=== PATIENT | female | born 1970 | race Caucasian/White ===

== ENCOUNTER 2019-05-11 07:11 | Outpatient (CLI) | payer BC, OTHER, SELFPAY ==
--- NOTE | ~2019-05-11 | MM_ITS ---
EXAMINATION: MM screening [facility] BI w williams HISTORY: Screening mammogram TECHNIQUE: Craniocaudal and mediolateral oblique 3-D tomosynthesis images were obtained and synthetic 2-D images were generated. CAD analysis was submitted and interpreted. COMPARISON: 02/07/2018, 02/23/2017, 05/24/2015 BREAST PARENCHYMAL COMPOSITION: The breasts are almost entirely fatty. FINDINGS: There is no evidence of suspicious mass, calcification, or architectural distortion to sugg est malignancy in either breast. There has been no suspicious interval change. IMPRESSION: 1. No mammographic evidence of malignancy. 2. Recommend routine screening mammography in one year. BI-RADS Category 1: Negative Reviewed, dictated and finalized at location A.
== END 2019-05-11 07:12 | disposition home or self-care (01) ==
PROVIDERS: PCP Family Medicine; Visit Provider Obstetrics & Gynecology
DX: Z12.31 Encounter for screening mammogram for malignant neoplasm of breast (principal)
CPT/HCPCS: 77063; 77067

== ENCOUNTER 2019-08-04 08:26 | Outpatient (CLI) | payer BC, OTHER, SELFPAY ==
--- NOTE | ~2019-08-04 | XR_ITS ---
EXAMINATION: XR chest 2V DATE: 08/04/2019 09:15 INDICATION: Episcleritis of both eyes. TECHNIQUE: Frontal and lateral views of the chest were obtained. COMPARISON: None. FINDINGS: The chest demonstrates clear lungs without pneumonia, pleural effusion, or pneumothorax. Th e heart size is normal. There are surgical clips in the abdomen. IMPRESSION: 1. No acute cardiopulmonary disease. Reviewed, dictated and finalized at location A.
--- NOTE | ~2019-08-04 | XR_ITS ---
XR sacroiliac joints min 3V DATE: 08/04/2019 09:15 INDICATION: Episcleritis of both eyes TECHNIQUE: AP and bilateral oblique views COMPARISON: None FINDINGS: The sacroiliac joints appear normal. No fracture, dislocation, erosive change or ankylosis. IMPRESSION: Negative Reviewed, dictated and finalized at Location A. Reviewed, dictated and finalized at location A. IMPRESSION: Negative
== END 2019-08-04 08:27 | disposition home or self-care (01) ==
LOC: ANHIMG 08:31
PROVIDERS: Visit Provider Internal Medicine Rheumatology
DX: H15.103 Unspecified episcleritis, bilateral (principal)
CPT/HCPCS: 71046; 72202

== ENCOUNTER 2020-05-13 07:34 | Outpatient (CLI) | payer BC, OTHER, SELFPAY ==
--- NOTE | ~2020-05-13 | MM_ITS ---
EXAMINATION: MM screening [facility] BI w williams HISTORY: Screening TECHNIQUE: Craniocaudal and mediolateral oblique 3-D tomosynthesis images were obtained and synthetic 2-D images were generated. CAD analysis was submitted and interpreted. COMPARISON: Comparison to multiple prior studies sequentially, with oldest reviewed study dated 07/2011. BREAST PARENCHYMAL COMPOSITION: There are scattered areas of fibroglandular density. FINDINGS: There is no evidence of suspicious mass, calcification, or architectural distortion to sugg est malignancy in either breast. There has been no suspicious interval change. IMPRESSION: 1. No mammographic evidence of malignancy. 2. Recommend routine screening mammography in one year. BI-RADS Category 1: Negative Reviewed, dictated and finalized at location A.
== END 2020-05-13 07:35 | disposition home or self-care (01) ==
LOC: ANHIMG 07:36
PROVIDERS: PCP Emergency Medicine; Visit Provider Obstetrics & Gynecology
DX: Z12.31 Encounter for screening mammogram for malignant neoplasm of breast (principal)
CPT/HCPCS: 77063; 77067

== ENCOUNTER → 2021-04-26 07:48 | Outpatient (CLI) | payer OTHER, SELFPAY ==
--- NOTE | ~2021-04-26 | US_ITS ---
EXAMINATION: US pelvic complete w TV EXAM DATE: 04/26/2021 08:37 INDICATION: N92.6 - Irregular menstruation, unspecified. TECHNIQUE: Pelvic transabdominal and transvaginal sonogram was performed. There are multiple graysca le and Doppler images available for interpretation. There is no prior study for comparison. FINDINGS: Uterus measures 9.1 x 3.9 x 4.8 cm, and is morphologically normal. Endometrial stripe january sures 8 mm, within normal limits. There is no free pelvic fluid. Right adnexa: The ovary measures 6.3 x 6.5 x 6.5 cm, with a 5.7 x 5.8 x 5.7 cm anechoic cystic lesion within this ovary.. Ovarian vascular flow confirmed. Left adnexa: The ovary measures 3.8 x 3.2 x 2.1 cm, there is a 1.8 cm anechoic cyst. Ovarian vascular flow confirmed. At 50 years of age, is patient perimenopausal rather than postmenopausal? Above findings could be wit hin normal limits if so. Clinical correlation and follow-up as indicated. IMPRESSION: 1. Endometrial stripe 8 mm, a borderline thickened measurement if patient is postmenopausal. 2. Left renal 5.8 cm simple cystic lesion. This could be follow-up with one year ultrasound. Reviewed, dictated and finalized at location A. FIELD AGENT IMPRESSION: 1. Endometrial stripe 8 mm, a borderline thickened measurement if patient is p ostmenopausal. 2. Left renal 5.8 cm simple cystic lesion. This could be follow-up with one y ear ultrasound.
== END ==
PROVIDERS: Visit Provider Obstetrics & Gynecology
DX: N92.6 Irregular menstruation, unspecified (principal); N28.9 Disorder of kidney and ureter, unspecified
CPT/HCPCS: 76830; 76856

== ENCOUNTER 2021-05-15 16:24 | Outpatient (CLI) | payer OTHER, SELFPAY ==
--- NOTE | ~2021-05-15 | MM_ITS ---
EXAMINATION: MM screening [facility] BI w williams HISTORY: Screening mammogram TECHNIQUE: Craniocaudal and mediolateral oblique 3-D tomosynthesis images were obtained and synthetic 2-D images were generated. CAD analysis was submitted and interpreted. COMPARISON: 05/13/2020, 05/11/2019, 02/07/2018 BREAST PARENCHYMAL COMPOSITION: There are scattered areas of fibroglandular density. FINDINGS: There is no suspicious mass, calcification, or architectural distortion to suggest malignan cy in either breast. There has been no suspicious interval change. IMPRESSION: 1. No mammographic evidence of malignancy. 2. Recommend routine screening mammography in one year. BI-RADS Category 1: Negative Reviewed, dictated and finalized at location A.
== END 2021-05-15 16:25 | disposition home or self-care (01) ==
PROVIDERS: Visit Provider Obstetrics & Gynecology
DX: Z12.31 Encounter for screening mammogram for malignant neoplasm of breast (principal)
CPT/HCPCS: 77063; 77067

== ENCOUNTER 2021-06-19 00:29 | Day surgery (SDC) | payer OTHER, SELFPAY ==
--- NOTE | 2021-06-11 16:39 | SUR.PREOP ---
Report to the Outpatient Waiting Room, entrance under the green pavilion located off [facility], at time 0745 on date 06/19/21. OR Time: 0945. - You and your visitor will be asked a series of questions to screen for COVID 19 for your protection. - A mask is required within the hospital. Preoperative COVID Testing Requirements: No COVID Test needed if: (proof is required; if not received patient will have Rapid Test prior to entry) - Patient has received COVID Vaccine at least 14 days prior to procedure date or - Patient has positive COVID test result within last 90 days of surgery date. COVID Test needed if above criteria is not met If not COVID vaccinated a COVID test must be conducted within 72 hours of surgery and patient is asked to isolate self from time of testing until procedure. You will go to the [facility] for your COVID testing. The [facility] is located at the corner of [address] from [facility]. You will only be called if COVID results are positive and your surgeon may reschedule your elective surgery date. Patients may have clear liquids (water, carbonated beverages, clear teas, apple juice) until 3 hours prior to surgery with a maximum of 20 ounces. - NO CLEAR LIQUIDS AFTER 0645 - No food from midnight until time of surgery - Infants may have breast milk until 4 hours before surgery, infant formula 6 hours prior to surgery. - Children will be allowed to drink immediately following surgery. If applicable, please bring a bottle or sippy cup to assist with drinking. Juice, water, soda, and popsicles are readily available. For infants on formula, please bring formula the day of surgery. Pacifiers are allowed. Take the following medications with a SIP of water the morning of surgery: LEVOTHYROXINE Medications to discontinue per physician STOP VITAMINS 06/16/21 Please no make-up, nail monegasque, hairspray, perfume, deodorant, or body powder the day of surgery. No jewelry (including any body piercings) or valuables the day of surgery, leave them at home. Please take a shower or bath the night before, or the morning of, surgery with an antibacterial soap. Wear comfortable, loose fitting clothing. Children are encouraged to wear pajamas. - Jewelry must be removed prior to entering the operating room. Rings and piercings that are not removed may be cut off. - The hospital will not accept responsibility for valuables. - Please leave all valuables, including medications, at home the day of surgery. If you are going home after surgery, a licensed team driver must drive you home. - NO public transportation without another adult. - We recommend that an adult stay with you for 24 hours following discharge. - We also recommend that you do not drive, make important decision, drink alcoholic beverages, or take any drugs that were not prescribed by your health care provider for at least 24 hours after your discharge time. For Pediatric surgeries, we recommend two adults accompany the child home (only one inside the building at this time). One visitor will be allowed to accompany the patient into the hospital. Patients visitor will be instructed to remain with patient at all times or leave the building. We will allow the visitor to come back to the postoperative area when patient is ready. Follow any additional instructions given to you from your surgeon. Telephone instructions given to LELE VINCENT and asked if any additional questions and then verbalized understanding. Patient advised to call surgeon office or pre surgery nurse liaison [phone] if any additional questions.
[2021-06-11 16:50] VITALS: BMI 47.0
--- NOTE | 2021-06-18 12:58 | WPDANESEPPF ---
Anes - Initial Pre Proc Eval Procedure: Operation Date: 06/19/21 10:00 Proposed Procedures p Hysteroscopy, Dilation and Curettage - Florian Williamson MD Date/Time: 06/18/21 12:58 Surgeon: Florian Williamson MD Pre Op Diagnosis: post menopausal bleeding Patient Data Age: 51 Gender: F Height: 1.7 m Weight: 136.2 kg Allergies Allergy/AdvReac Type Severity Reaction Status Date / Time No Known Allergies Allergy Verified 06/11/21 16:49 Home Medications Medication Instructions Recorded Confirmed Type pantoprazole 40 mg tablet,delayed 40 mg PO DAILY tablet 07/05/19 06/11/21 History release difluprednate 0.05 % eye drops 1 drop EACH EYE DAILY ml 08/29/19 06/11/21 History cholecalciferol (vitamin D3) 50 50 mcg PO DAILY 10/05/19 06/11/21 History mcg (2,000 unit) capsule multivitamin 1 tablet PO DAILY 10/05/19 06/11/21 History naproxen 250 mg tablet 250 mg PO BID PRN 10/05/19 06/11/21 History levothyroxine 137 mcg tablet 137 mcg PO DAILY 30 Days #30 tablet 01/06/21 06/11/21 Rx diclofenac sodium 0.1 % eye drops 1 drp EACH EYE QID PRN 04/15/21 06/11/21 History Results Review: All pre-operative results and documents have been reviewed as part of the pre-operative evaluation. [facility] Past Medical History Medical History (Updated 06/18/21 @ 12:59 by Jovanni Bennett MD) Abnormal Pap smear of cervix x2 - no bx Acid reflux Hypothyroidism Morbid obesity with BMI of 45.0-49.9, adult Nodular episcleritis of both eyes (~2019) DEVAN on CPAP Screening mammogram, encounter for Thyroid disease Surgical History Surgical History Hx of cholecystectomy 2007 Hx of tonsillectomy 1979 Previous section 1993 Family History Family History Mother COPD (chronic obstructive pulmonary disease) Heart disease Grandparent Colon cancer Other Migraines Social History Social History (Updated 04/15/21 @ 15:32 by RAMSEY De La Paz) Smoking packs per day: 1.5 Smoking cigarettes per day: 30.0 Years smoked: 30 Smoking pack-years: 45.00 Smoking status: Former smoker Tobacco type: cigarettes Smoking end date: 05/30/18 Alcohol intake: current Alcohol use details: occasional Substance use: never Substance use type: does not use 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 Gender identity (if verbalized by the patient): Female Sexual Orientation (if Verbalized by the Patient): Straight or Heterosexual Spiritual care concerns: No Anes - Eval Final PreProcedure Day of Procedure 06/18/21 12:58 Patient weight: morbidly obese Heart: regular rate and rhythm Lungs: clear to auscultation and normal air movement Airway: Mallampati scale class II Neurological: alert and oriented Last oral intake: >/= 8 hours ASA classification: III Emergent: no Anesthetic plan: proceed Anesthesia type and monitoring: general GIVS and LMA Results Review: All pre-operative results and documents have been reviewed as part of the pre-operative evaluation. Informed Consent: The patient's anesthetic plan and its attendant risks and benefits were discussed with the patient/family/POA. Questions were solicited and answers provided to the satisfaction of the patient/family/POA.
--- NOTE | 2021-06-18 14:11 | PM.IMHP ---
H&P: HPI History of Present Illness Date/Time: 06/18/21 14:11 51-year-old 1 para 1001 female presents for hysteroscopic evaluation for irregular vaginal bleeding which she has had over the past year. Laboratory studies show that she is menopausal and her ultrasound revealed slightly thickened endometrial cavity 8mm. Also cyst was noted on the ovary which will be followed up in 3-4 months. Presents therefore today for evaluation of the endometrium with hysteroscopy and uterine curettings. Chief Complaint: Postmenopausal bleed Review of Systems Review of Systems: All systems reviewed & are unremarkable except as noted in HPI and below PMFSH Past Medical History Medical History Abnormal Pap smear of cervix x2 - no bx Acid reflux Hypothyroidism Morbid obesity with BMI of 45.0-49.9, adult Nodular episcleritis of both eyes (~2019) DEVAN on CPAP Screening mammogram, encounter for Thyroid disease Surgical History Surgical History Hx of cholecystectomy 2007 Hx of tonsillectomy 1978 Previous section 1993 Family History Family History Mother COPD (chronic obstructive pulmonary disease) Heart disease Grandparent Colon cancer Other Migraines Social History Social History Smoking packs per day: 1.5 Smoking cigarettes per day: 30.0 Years smoked: 30 Smoking pack-years: 45.00 Smoking status: Former smoker Tobacco type: cigarettes Smoking end date: 05/30/18 Alcohol intake: current Alcohol use details: occasional Substance use: never Substance use type: does not use 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 Gender identity (if verbalized by the patient): Female Sexual Orientation (if Verbalized by the Patient): Straight or Heterosexual Spiritual care concerns: No Meds Home Medications and Allergies Home Medications Medication Instructions Recorded Confirmed Type pantoprazole 40 mg tablet,delayed 40 mg PO DAILY tablet 07/05/19 06/11/21 History release difluprednate 0.05 % eye drops 1 drop EACH EYE DAILY ml 08/29/19 06/11/21 History cholecalciferol (vitamin D3) 50 50 mcg PO DAILY 10/05/19 06/11/21 History mcg (2,000 unit) capsule multivitamin 1 tablet PO DAILY 10/05/19 06/11/21 History naproxen 250 mg tablet 250 mg PO BID PRN 10/05/19 06/11/21 History levothyroxine 137 mcg tablet 137 mcg PO DAILY 30 Days #30 tablet 01/06/21 06/11/21 Rx diclofenac sodium 0.1 % eye drops 1 drp EACH EYE QID PRN 04/15/21 06/11/21 History Allergies Allergy/AdvReac Type Severity Reaction Status Date / Time No Known Allergies Allergy Verified 06/11/21 16:49 Exam Const: General: cooperative, healthy appearing and comfortable Resp: Effort & Inspection: normal respiratory effort Auscultation: clear to auscultation bilaterally Cardio: Rate: regular rate Rhythm: regular rhythm GI: Inspection: normal to inspection and obesity Auscultation: normal bowel sounds : External Female Exam: normal external appearance Speculum Exam - Vagina: normal appearance of the vagina Speculum Exam - Cervix: normal appearance of the cervix Bimanual exam- vagina & uterus: normal bimanual exam ( Limited by body habitus) Assessment and Plan Assessment and plan (1) Post-menopausal bleeding: Code(s): N95.0 - Postmenopausal bleeding Status: Acute Additional Plan 1. Hysteroscopy with uterine curettings.
--- NOTE | 2021-06-19 07:22 | WPDHPUPDATE1 ---
History and Physical Update Update Date/Time: 06/19/21 07:22 History and Physical has been reviewed, including an updated exam of the patient. There are NO changes in the patient's condition. Risks, benefits, and alternatives have been discussed and questions answered. Patient agrees to proceed with procedure.
[2021-06-19 08:17] VITALS: BP 147/83; PULSE 83; RESP 18; TEMP 36.1; O2SAT 98
[2021-06-19] MEDS: LACTATED RINGERS 1,000 ML 30 ML IV CONT (08:31)
[2021-06-19] MEDS: ACETAMINOPHEN 500 MG TABLET 1000 MG PO (08:31)
--- NOTE | 2021-06-19 08:42 | WPDANESEPPF ---
Anes - Initial Pre Proc Eval Procedure: Operation Date: 06/19/21 10:00 Proposed Procedures p Hysteroscopy, Dilation and Curettage - Florian Williamson MD Date/Time: 06/19/21 08:42 Surgeon: Florian Williamson MD Pre Op Diagnosis: post menopausal bleeding Patient Data Age: 51 Gender: F Height: 1.7 m Weight: 137 kg Last Vital Signs Temp 36.1 C L 06/19/21 08:17 Pulse 83 06/19/21 08:17 Resp 18 06/19/21 08:17 BP 147/83 H 06/19/21 08:17 Pulse Ox 98 06/19/21 08:17 Allergies Allergy/AdvReac Type Severity Reaction Status Date / Time No Known Allergies Allergy Verified 06/19/21 08:15 Home Medications Medication Instructions Recorded Confirmed Type pantoprazole 40 mg tablet,delayed 40 mg PO DAILY tablet 07/05/19 06/19/21 History release difluprednate 0.05 % eye drops 1 drop EACH EYE DAILY ml 08/29/19 06/19/21 History cholecalciferol (vitamin D3) 50 50 mcg PO DAILY 10/05/19 06/19/21 History mcg (2,000 unit) capsule multivitamin 1 tablet PO DAILY 10/05/19 06/19/21 History naproxen 250 mg tablet 250 mg PO BID PRN 10/05/19 06/19/21 History levothyroxine 137 mcg tablet 137 mcg PO DAILY 30 Days #30 tablet 01/06/21 06/19/21 Rx diclofenac sodium 0.1 % eye drops 1 drp EACH EYE QID PRN 04/15/21 06/19/21 History Patient hx anesthesia problems: none Family hx anesthesia problems: none Results Review: All pre-operative results and documents have been reviewed as part of the pre-operative evaluation. [facility] Past Medical History Medical History Abnormal Pap smear of cervix x2 - no bx Acid reflux Hypothyroidism Morbid obesity with BMI of 45.0-49.9, adult Nodular episcleritis of both eyes (~2018) DEVAN on CPAP Screening mammogram, encounter for Thyroid disease Surgical History Surgical History Hx of cholecystectomy 2007 Hx of tonsillectomy 1979 Previous section 1993 Family History Family History Mother COPD (chronic obstructive pulmonary disease) Heart disease Grandparent Colon cancer Other Migraines Social History Social History Smoking packs per day: 1.5 Smoking cigarettes per day: 30.0 Years smoked: 30 Smoking pack-years: 45.00 Smoking status: Former smoker Tobacco type: cigarettes Smoking end date: 05/30/18 Alcohol intake: current Alcohol use details: occasional Substance use: never Substance use type: does not use Living arrangements: with family 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 Gender identity (if verbalized by the patient): Female Sexual Orientation (if Verbalized by the Patient): Straight or Heterosexual Spiritual care concerns: No Anes - Eval Final PreProcedure Day of Procedure 06/19/21 08:42 Patient weight: morbidly obese Heart: regular rate and rhythm Airway: Mallampati scale class II Neurological: alert and oriented Last oral intake: >/= 8 hours ASA classification: III Emergent: no Anesthetic plan: proceed Anesthesia type and monitoring: general GIVS and standard monitoring Results Review: All pre-operative results and documents have been reviewed as part of the pre-operative evaluation. Informed Consent: The patient's anesthetic plan and its attendant risks and benefits were discussed with the patient/family/POA. Questions were solicited and answers provided to the satisfaction of the patient/family/POA.
[2021-06-19 09:54] VITALS: BP 140/77; PULSE 80; RESP 16; O2SAT 95
--- NOTE | 2021-06-19 09:58 | P.OPB_ITS ---
Procedure Note - Brief Procedure Note - Brief Date of procedure: 06/19/21 Pre-op diagnosis: post menopausal bleeding Post-op diagnosis: Same (Plus endometrial polyp) Procedure performed: 1. Hysteroscopy 2. Hysteroscopic polypectomy Description of procedure: Patient prepped and draped in usual manner for this procedure. Cervix was dilated to allow the hysteroscope be placed which did reveal polyps as noted above. Polyp forceps were used remove the polyp in total. Curettings were then obtained from the rest of cavity though it did appear atrophic. Patient tolerated procedure well and sent to recovery in stab le condition. Anesthesia: MAC Surgeon: Florian Williamson MD Estimated blood loss (mL): 10 Drains: No Packing: No Pathology: Yes Complications: No immediate complications Condition: Stable Disposition: PACU Findings: Endometrial polyp. Endometrium atrophic other than polyp.
[2021-06-19 10:24] VITALS: BP 143/90; PULSE 67
[2021-06-19 10:44] VITALS: BP 142/87; PULSE 67
== END 2021-06-19 10:48 | disposition home or self-care (01) ==
PROVIDERS: PCP Nurse Practitioner Family; Visit Provider Obstetrics & Gynecology
PROC: 0U5B8ZZ Destruction of Endometrium, Via Natural or Artificial Opening Endoscopic (ICD-10-PCS; CPT 58563; principal; 2021-06-19 10:00)
DX: N95.0 Postmenopausal bleeding (principal); N84.0 Polyp of corpus uteri; E03.9 Hypothyroidism, unspecified; G47.33 Obstructive sleep apnea (adult) (pediatric); K21.9 Gastro-esophageal reflux disease without esophagitis; Z87.891 Personal history of nicotine dependence; E66.01 Morbid (severe) obesity due to excess calories; Z68.42 Body mass index [BMI] 45.0-49.9, adult
CPT/HCPCS: 58558; 88305; A9270; J1100; J2250; J2405; J2704; J3010; J7120

== ENCOUNTER 2023-06-10 09:03 | Outpatient (CLI) | payer OTHER, SELFPAY ==
--- NOTE | ~2023-06-10 | MM_ITS ---
EXAMINATION: MM screening [facility] BI w williams HISTORY: Screening mammogram TECHNIQUE: Craniocaudal and mediolateral oblique 3-D tomosynthesis images were obtained and synthetic 2-D images were generated. CAD analysis was submitted and interpreted. COMPARISON: 05/15/2021, 05/13/2020 bilateral screening mammogram examinations BREAST PARENCHYMAL COMPOSITION: The breasts are almost entirely fatty. FINDINGS: There is no evidence of suspicious mass, calcification, or architectural distortion to sugg est malignancy in either breast. There has been no suspicious interval change. IMPRESSION: 1. No mammographic evidence of malignancy. 2. Recommend routine screening mammography in one year. BI-RADS Category 1: Negative Reviewed, dictated and finalized at location A.
== END 2023-06-10 09:04 | disposition home or self-care (01) ==
PROVIDERS: PCP Nurse Practitioner Family; Visit Provider Obstetrics & Gynecology
DX: Z12.31 Encounter for screening mammogram for malignant neoplasm of breast (principal)
CPT/HCPCS: 77063; 77067

== ENCOUNTER 2024-08-18 13:55 | Outpatient (CLI) | payer OTHER, SELFPAY ==
--- NOTE | ~2024-08-18 | MM_ITS ---
EXAMINATION: MM screening [facility] BI w williams HISTORY: Screening TECHNIQUE: Craniocaudal and mediolateral oblique 3-D tomosynthesis images were obtained and synthetic 2-D images were generated. CAD analysis was submitted and interpreted. COMPARISON: Comparison to multiple prior studies sequentially, with oldest reviewed study dated 01/30. BREAST PARENCHYMAL COMPOSITION: Not Dense: The breasts are almost entirely fatty. FINDINGS: There is no evidence of suspicious mass, calcification, or architectural distortion to sugg est malignancy in either breast. There has been no suspicious interval change. IMPRESSION: 1. No mammographic evidence of malignancy. 2. Recommend routine screening mammography in one year. BI-RADS Category 1: Negative Reviewed, dictated and finalized at location A.
== END 2024-08-18 13:56 | disposition home or self-care (01) ==
LOC: ANHIMG 13:58
PROVIDERS: PCP Nurse Practitioner Family; Visit Provider Obstetrics & Gynecology
DX: Z12.31 Encounter for screening mammogram for malignant neoplasm of breast (principal)
CPT/HCPCS: 77063; 77067